=== PATIENT | male | born 1980 | race Hispanic/Latino ===

== ENCOUNTER 2020-12-24 01:53 | Emergency (ER) | payer SELFPAY ==
[~2020-12-24] VITALS: Ht 175.3 cm; Wt 87.5 kg
[2020-12-24 02:04] VITALS: BP 121/80
[2020-12-24] MEDS ORDERED: LIDOCAINE HCL 2% VISCOUS 15 ML UDCUP ONE (02:12)
[2020-12-24] MEDS ORDERED: MAG/ALUM/SIMETH 30 ML UDCUP ONE (02:12)
[2020-12-24] MEDS ORDERED: DOXYCYCLINE HYCLATE 100 MG TABLET PO SCH (03:00)
[2020-12-24] MEDS ORDERED: PREDNISONE 20 MG TABLET PO ONE (03:00)
[2020-12-24] MEDS ORDERED: ALBUTEROL 0.083% 2.5 MG/3 ML INH IH ONE ×2 (03:00)
[2020-12-24] MEDS ORDERED: DOXY100T2 PO (03:57)
[2020-12-24] MEDS ORDERED: PRED20TA3 PO (03:57)
[2020-12-24] MEDS ORDERED: BENZ-17 PO (03:57)
[2020-12-24] MEDS ORDERED: ALBU8.5H8 IH (03:57)
[2020-12-24 04:06] VITALS: BP 128/78
== END 2020-12-24 04:14 | disposition home or self-care (01) ==
LOC: EDH 01:53
DX: J45.909 Unspecified asthma, uncomplicated (principal); K21.9 Gastro-esophageal reflux disease without esophagitis; F17.200 Nicotine dependence, unspecified, uncomplicated; Z79.52 Long term (current) use of systemic steroids
CPT/HCPCS: 71045; 94640